=== PATIENT | female | born 1960 | race Caucasian/White ===

== ENCOUNTER 2017-10-12 11:50 | Outpatient (CLI) | payer MEDICARE ==
[2017-10-12 12:48] LABS: Anion Gap 19 mmol/L (10-20); BUN (Urea Nitrogen) 31 mg/dL (9.8-20.1); Calc. Creatinine Clearance 0 mL/min (70-130); Calcium 9.7 mg/dL (7.8-10.44); Carbon Dioxide 29 mmol/L (22-29); Chloride 96 mmol/L (98-107); Estimated GFR-MDRD 70; Glucose 150 mg/dL (70-105); Potassium 4.8 mmol/L (3.5-5.1); Sodium 139 mmol/L (136-145)
--- NOTE | 2017-10-12 14:11 | RAD ---
TWO VIEW CHEST: HISTORY: Acute pulmonary edema. Dyspnea. History of pneumonia. COMPARISON: Chest film from 01/26/2016. TECHNIQUE: PA and lateral views obtained. FINDINGS: The lungs are well aerated and clear. There is no evidence of vascular congestion or edema. There i s no infiltrate or effusion. There is a calcific granuloma seen anteriorly on the lateral view, whic h is stable. Heart and mediastinum are unremarkable. IMPRESSION: No acute lung process identified. POS: [facility]
== END 2017-10-12 11:51 | disposition home or self-care (01) ==
LOC: MADLABBHPM 11:50
PROVIDERS: ATTEND Family Medicine
DX: J81.0 Acute pulmonary edema (principal); E87.6 Hypokalemia
CPT/HCPCS: 36415; 71046; 80048

== ENCOUNTER 2019-09-19 17:23 | Outpatient (CLI) | payer MEDICARE, MEDICAID ==
--- NOTE | 2019-09-19 17:49 | RAD ---
Chest 2 views HISTORY: Dyspnea. COMPARISON: 04/01/2019. FINDINGS: Cardiac silhouette is enlarged. Pulmonary vasculature slightly engorged with widespread ret iculonodular interstitial prominence and mild patchy bibasilar infiltrates. Lungs are hyperinflated. Calcified granulomata are consistent with healed granulomatous disease. No lobar conso lidation or evidence of pneumothorax. IMPRESSION: Cardiomegaly with borderline pulmonary vascular congestion. Consider mild CHF. COPD.
== END 2019-09-19 17:24 | disposition home or self-care (01) ==
LOC: MADRAD 17:23
PROVIDERS: ATTEND Family Medicine
DX: J44.1 Chronic obstructive pulmonary disease with (acute) exacerbation (principal); I51.7 Cardiomegaly; R09.89 Other specified symptoms and signs involving the circulatory and respiratory systems
CPT/HCPCS: 71046